=== PATIENT | female | born 1990 ===

== ENCOUNTER 2020-12-27 16:55 | Inpatient (IN) | payer BC ==
[2020-12-27] MEDS ORDERED: Lidocaine 1% 50 ML MDV INJECT PRN (18:01)
[2020-12-27] MEDS ORDERED: Carboprost Tromethamine 250 MCG/1 ML Amp IM PRN (18:01)
[2020-12-27] MEDS ORDERED: Sodium Chloride 0.9% 10 ML Syringe FLUSH PRN (18:01)
[2020-12-27] MEDS ORDERED: Sodium Chloride 0.9% 2.5 ML Syringe FLUSH PRN (18:01)
[2020-12-27] MEDS ORDERED: Misoprostol 200 MCG Tab PO PRN (18:01)
[2020-12-27] MEDS ORDERED: Misoprostol 25 MCG (1/4 of 100 MCG) Tab VAG PRN (18:01)
[2020-12-27] MEDS ORDERED: Sodium Chloride 0.9% 10 ML SDV IV PRN (18:01)
[2020-12-27] MEDS ORDERED: Terbutaline 1 MG/ML SDV SUBCUT PRN (18:01)
[2020-12-27] MEDS ORDERED: Methylergonovine 0.2 MG/1 ML Amp IM PRN (18:01)
[2020-12-27] MEDS ORDERED: Water For Irrigation,Sterile 1,000 ML Container IRR PRN (18:01)
[2020-12-27] MEDS ORDERED: Ondansetron 4 MG/2 ML SDV IVPUSH PRN (18:01)
[2020-12-27] MEDS ORDERED: Tranexamic Acid 1,000 MG in Sodium Chloride 0.9% 100 ML IV PRN (18:01)
[2020-12-27] MEDS ORDERED: Oxytocin/0.9 % Sodium Chloride 30 UNIT/500 ML BAG IV SCH ×2 (18:15)
[2020-12-27] MEDS: Misoprostol 25 MCG (1/4 of 100 MCG) Tab VAG PRN ×2 (18:42→23:00)
[2020-12-28] MEDS: Butorphanol 1 MG/ML SDV IVPUSH PRN ×2 (00:05→03:36)
[2020-12-28] MEDS: Misoprostol 25 MCG (1/4 of 100 MCG) Tab VAG PRN (03:00)
[2020-12-28] MEDS: Lactated Ringers 1,000 ML IV SCH ×2 (08:16→13:54)
[2020-12-28] MEDS ORDERED: fentaNYL 100 MCG/2 ML SDV ONE ×2 (08:52→20:16)
[2020-12-28] MEDS ORDERED: Ropivacaine HCl/PF 200 ML ONE (08:52)
--- NOTE | 2020-12-28 09:23 | PCM.PREANE ---
Preanesthetic Assessment - Anesthesia/Transfusion/Family Hx Anesthesia History: Prior Anesthesia Without Reaction Family History of Anesthesia Reaction: No - Physical Assessment NPO Status Date: 12/28/20 NPO Status Time: 06:00 Height: 1.57 m Weight: 92.079 kg ASA Class: 2 - Lab Values: Laboratory Last Values WBC 15.23 K/uL (4.0-11.0) H 12/27/20 18:14 RBC 4.28 M/uL (4.30-5.90) L 12/27/20 18:14 Hgb 11.9 g/dL (12.0-16.0) L 12/27/20 18:14 Hct 36.8 % (36.0-46.0) 12/27/20 18:14 MCV 86.0 fL (80.0-98.0) 12/27/20 18:14 MCH 27.8 pg (27.0-32.0) 12/27/20 18:14 MCHC 32.3 g/dL (31.0-37.0) 12/27/20 18:14 RDW Std Deviation 44.6 fl (28.0-62.0) 12/27/20 18:14 RDW Coeff of Kaleigh 15 % (11.0-15.0) 12/27/20 18:14 Plt Count 373 K/uL (150-400) 12/27/20 18:14 MPV 10.20 fL (7.40-12.00) 12/27/20 18:14 Nucleated RBC % 0.0 /100WBC 12/27/20 18:14 Nucleated RBCs # 0 K/uL 12/27/20 18:14 Blood Type A POSITIVE 12/27/20 18:16 Antibody Screen NEGATIVE 12/27/20 18:16 - Allergies Allergies/Adverse Reactions: Allergies Allergy/AdvReac Type Severity Reaction Status Date / Time No Known Allergies Allergy Verified 12/27/20 18:00 - Acknowledgements Anesthesia Type Planned: Epidural Pt an Appropriate Candidate for the Planned Anesthesia: Yes Alternatives and Risks of Anesthesia Discussed w Pt/Guardian: Yes Pt/Guardian Understands and Agrees with Anesthesia Plan: Yes PreAnesthesia Questionnaire Genitourinary History: Reports: UTI, Recurrent [employer] History: Reports: Ectopic , Polycystic Ovaries - Infectious Disease History Infectious Disease History: Reports: Herpes - Past Surgical History Female Surgical History: Reports: Dilitation & Evacuation, LEEP, Other (See Below) Other Female Surgeries/Procedures: Salpingo 2012 - SUBSTANCE USE Tobacco Use Status *Q: Never Tobacco User Second Hand Smoke Exposure: No Recreational Drug Use History: No - CURRENT (IN HOUSE) MEDS Current Meds: Current Medications Butorphanol Tartrate (Butorphanol 1 Mg/Ml Sdv) 1 mg IVPUSH Q1H PRN PRN Reason: Pain (severe 7-10) Last Admin: 12/28/20 03:36 Dose: 1 mg Documented by: Carboprost Tromethamine (Carboprost Tromethamine 250 Mcg/1 Ml Amp) 250 mcg IM ASDIRECTED PRN PRN Reason: Post Hemorrhage Oxytocin/Sodium Chloride (Oxytocin 30 Unit/500 Ml-Ns) 30 unit in 500 mls @ 999 mls/hr IV TITRATE [facility] Tranexamic Acid 1,000 mg/ (Sodium Chloride) 110 mls @ 660 mls/hr IV ONETIME PRN PRN Reason: Bleeding Oxytocin/Sodium Chloride (Oxytocin 30 Unit/500 Ml-Ns) 30 unit in 500 mls @ 2 mls/hr IV TITRATE [facility]; Protocol Last Admin: 12/28/20 08:17 Dose: 2 munits/min, 2 mls/hr Documented by: Lactated Ringer's (Ringers, Lactated) 1,000 mls @ 150 mls/hr IV ASDIRECTED [facility] Last Admin: 12/28/20 08:16 Dose: 150 mls/hr Documented by: Lidocaine HCl (Lidocaine 1% 50 Ml Mdv) 50 ml INJECT ONETIME PRN PRN Reason: Laceration repair Methylergonovine Maleate (Methylergonovine 0.2 Mg/1 Ml Amp) 0.2 mg IM ASDIRECTED PRN PRN Reason: Post Hemorrhage Misoprostol (Misoprostol 200 Mcg Tab) 200 mcg PO ONETIME PRN PRN Reason: Post Hemorrhage Misoprostol (Misoprostol 25 Mcg (1/4 Of 100 Mcg) Tab) 25 mcg VAG ONETIME PRN PRN Reason: Cervical Ripening Last Admin: 12/28/20 03:00 Dose: 25 mcg Documented by: Misoprostol (Misoprostol 25 Mcg (1/4 Of 100 Mcg) Tab) 25 mcg VAG Q4H PRN PRN Reason: Cervical Ripening Ondansetron HCl (Ondansetron 4 Mg/2 Ml Sdv) 4 mg IVPUSH Q6H PRN PRN Reason: Nausea/Vomiting Sodium Chloride (Sodium Chloride 0.9% 10 Ml Syringe) 10 ml FLUSH ASDIRECTED PRN PRN Reason: Keep Vein Open Sodium Chloride (Sodium Chloride 0.9% 2.5 Ml Syringe) 2.5 ml FLUSH ASDIRECTED PRN PRN Reason: Keep Vein Open Sodium Chloride (Sodium Chloride 0.9% 10 Ml Sdv) 10 ml IV ASDIRECTED PRN PRN Reason: IV Use Sterile Water (Water For Irrigation,Sterile 1,000 Ml Container) 1,000 ml IRR ASDIRECTED PRN PRN Reason: delivery Terbutaline Sulfate (Terbutaline 1 Mg/Ml Sdv) 0.25 mg SUBCUT ASDIRECTED PRN PRN Reason: Tacysystole Discontinued Medications Fentanyl (Fentanyl 100 Mcg/2 Ml Sdv) Confirm Administered Dose 200 mcg .ROUTE .STK-MED ONE Stop: 12/28/20 08:53 Ropivacaine (Naropin 0.2%) Confirm Administered Dose 200 mls @ as directed .ROUTE .STK-MED ONE Stop: 12/28/20 08:53
--- NOTE | 2020-12-28 09:27 | PCM.PRNOTE ---
- Free Text/Narrative Note: Anes Note Patient requests epidural for L&D. Sitting position. Level L3-L4 midline approach. Sterile technique. Chloraprep scrub to lumbar area. Sterile fenestrated drape applied. Epidural space easily achieved using TREY technique. TREY at 4 cm. Cath threaded 5 cm with ease. Cath secured a t skin using sterile clear adhesive dressing. Test 0910 3 cc 1.5% lido with epi negative. 0915 Load 10 cc 0.2% ropivicaine with 1 mcg cc fentanyl in slow divided doses. -922 Pump started with 180 cc same solution. Rate is 8 cc hr with 6 cc q 20 min prn bolus. Derrick well. Time with patient [id number] Juan Fuentes MARKETING DEVELOPER
[2020-12-28] MEDS ORDERED: Phenylephrine/Normal Saline 100 MCG/ML 10 ML Syringe IVPUSH PRN (09:32)
[2020-12-28] MEDS ORDERED: ePHEDrine 50 MG/ML SDV IVPUSH PRN (09:32)
--- NOTE | 2020-12-28 15:11 | PCM.PRNOTE ---
- Free Text/Narrative Note: Anes Note I was called to check the epidural pump, which was reporting air in line. The line was clear. The line was flushed and the pump was restarted. Rate is 8 cc hr with 6 cc q 20 min bolus. Patient reports excellent analgesia. Time with patient [id number] Juan Fuentes CRNA
[2020-12-28] MEDS ORDERED: Lidocaine 2% with EPINEPHrine 1:200,000 20 ML SDV ONE (19:56)
[2020-12-28] MEDS ORDERED: Sodium Chloride 0.9% 20 ML ONE (20:16)
[2020-12-28] MEDS ORDERED: Ketorolac 30 MG/ML SDV ONE (20:16)
[2020-12-28] MEDS ORDERED: Morphine PF 10 MG/10 ML SDV ONE (20:16)
[2020-12-28] MEDS ORDERED: ceFAZolin 1 GM Vial ONE (20:16)
[2020-12-28] MEDS ORDERED: Oxytocin 10 Units/1 ML SDV ONE (20:16)
[2020-12-28] MEDS ORDERED: Ondansetron 4 MG/2 ML SDV ONE (20:16)
[2020-12-28] MEDS ORDERED: Nalbuphine 10 MG/1 ML Vial IVPUSH PRN (20:45)
[2020-12-28] MEDS: Ketorolac 30 MG/ML SDV IVPUSH SCH (20:45)
[2020-12-28] MEDS ORDERED: Bisacodyl 10 MG Supp RECTAL PRN (21:03)
[2020-12-28] MEDS ORDERED: Oxytocin 10 Units/1 ML SDV IM PRN (21:03)
[2020-12-28] MEDS ORDERED: Lanolin 100% Cream 7 GM Tube TOP PRN (21:03)
[2020-12-28] MEDS ORDERED: Acetaminophen/oxyCODONE 325-5 MG Tab PO PRN (21:03)
[2020-12-28] MEDS ORDERED: Ondansetron 4 MG/2 ML SDV IVPUSH PRN (21:03)
[2020-12-28] MEDS ORDERED: diphenhydrAMINE 50 MG/ML SDV IVPUSH PRN (21:03)
--- NOTE | 2020-12-28 21:13 | PCM.OPNOTE ---
- General Post-Op/Procedure Note Date of Surgery/Procedure: 12/28/20 Operative Procedure(s): Primary LTCS Findings: Viable male APGARs 8, 9 weight 3580 gm. Delivery intact placenta with 3V cord Pre Op Diagnosis: 41/6 week IUP. Arrest of descent Post-Op Diagnosis: Same Anesthesia Technique: Epidural Primary Surgeon: Arline Domínguez Fluid Replacement, Intraop: 1,500 EBL in mLs: 600 Complications: none known Condition: Stable Free Text/Narrative:: Intake & Output 12/28/20 12/28/20 12/28/20 06:59 14:59 22:59 Output Total Balance @ Dictation [id number]
[2020-12-28] MEDS ORDERED: Lactated Ringers 1,000 ML IV SCH (21:15)
--- NOTE | 2020-12-28 21:22 | PCM.POSTAN ---
POST ANESTHESIA ASSESSMENT - MENTAL STATUS Mental Status: Alert - VITAL SIGNS Vital Signs: Last Vital Signs Temp 36.6 C 12/28/20 20:56 Pulse 88 12/28/20 20:56 Resp 14 12/28/20 20:56 BP 100/68 12/28/20 20:56 Pulse Ox 96 12/28/20 20:56 - RESPIRATORY Respiratory Status: Respiratory Rate WNL - CARDIOVASCULAR CV Status: Pulse Rate WNL - GASTROINTESTINAL GI Status: No Symptoms - POST OP HYDRATION Hydration Status: Adequate & Stable
[2020-12-29] MEDS: Ketorolac 30 MG/ML SDV IVPUSH SCH ×4 (03:05→21:39)
[2020-12-29] MEDS: Simethicone 80 MG Tab.Chew PO SCH ×3 (03:18→14:37)
--- NOTE | 2020-12-29 05:42 | OR ---
SURGEON: Arline Domínguez M.D. DATE OF PROCEDURE: 12/28/2020 PREOPERATIVE DIAGNOSES: 1. A 41-6/7 week intrauterine . 2. Arrest of descent. POSTOPERATIVE DIAGNOSES: 1. A 41-6/7 week intrauterine . 2. Arrest of descent. PROCEDURE: Primary low-transverse section. PRIMARY SURGEON: Arline Domínguez M.D. ANESTHESIA: Epidural. ESTIMATED BLOOD LOSS: 600 mL. FLUIDS: 1300 mL of crystalloid in the OR. COMPLICATIONS: None known. FINDINGS: Viable male. scores 8 at one minute and 9 at five minutes. Weight of 3580 g. Spontaneous delivery of intact placenta with 3-vessel cord. DISPOSITION: Infant to nursery, mom in PACU, stable. PROCEDURE DETAILS: Mitzi is a 30-year-old, G1, P0, at 41-6/7 week gestational age, who presented on the evening of 12/27/2020 for scheduled induction of labor due to past due . She initially underwent Cytotec ripening, responded nicely to this. The following morning, she was found to be 2 to 3 cm dilated, 80% effaced, -2 station. Amniotomy was performed. Clear fluid was returned. She became increasingly uncomfortable, underwent regional anesthesia in the form of epidural, became more comfortable, and made nice progress through the late morning and early afternoon hours. By 5 p.m., she was found to be complete, 100% effaced, 0 station. heart tones remained category 1. The patient began pushing efforts. She pushed for the next 2 hours with really no change in her station. I came in at that point and continued to push with her, and noted that there really was no descent of the suture line past the 0 station, just caput forming. Therefore, at this point had a discussion with the patient and her regarding the findings and options to either continue with pushing efforts for the next approximately an hour or to proceed with delivery. They are opting to proceed with a delivery at this juncture. Risks of procedure have been discussed with them including infection; bleeding; possible trauma to the surrounding bowel, bladder, or ureters; in case of excessive blood loss, need for blood product transfusion; in rare lifesaving circumstances need for hysterectomy; blood product transfusion; risk for thromboembolic event; and risk of anesthesia. Proper consent obtained. The patient was taken to the operating room after her epidural was re-bolused. She was placed in the dorsal supine position with a leftward tilt. SCDs to the lower extremities. Park to gravity. Prepped and draped in the usual sterile fashion. A time-out was performed. She received Ancef prophylactically. Anesthesia was tested and found to be adequate. A Pfannenstiel skin incision was now created and carried down to the level of the rectus fascia which was then incised in the midline, lateralized, and dissected sharply and bluntly. Superior aspect of the fascia was tented up, dissected sharply and bluntly from underlying muscle. A similar aspect was performed with the inferior aspect of fascia. Rectus muscle was in the midline. Peritoneum was tented upward and entered. The peritoneum and rectus muscles were now lateralized bluntly. Uterine position and position were gently palpated. Self-retaining retractor was gently placed. Uterovesical reflection was visualized. Bladder flap was created sharply and bluntly. The bladder was mobilized away from lower uterine segment. A low transverse hysterotomy was now performed. The uterine cavity was entered with blunt-ended scalpel. Hysterotomy was lateralized bluntly. The 's head was flexed, delivered from the pelvis. Fundal pressure was applied. The 's head was delivered followed by anterior shoulder, posterior shoulder, and remainder of the body without difficulty. A loose nuchal cord x1 was reduced manually. The 's oropharynx and nares were bulb suctioned. After a delay, the cord was clamped x2 and cut. The was handed off to attending systems support engineer and nursery staff. The placenta was delivered and handed off to [facility] with 3-vessel cord. She did obtain cord blood gases and blood sampling. The uterine cavity was cleared of all clot and debris. The uterus was firm at this time. Hysterotomy was repaired using 0 Vicryl in a continuous running locked fashion followed by a re-imbricating layer. The area of oozing in the midline was replicated with a [id number] suture. Hemostasis was thereafter evident. Posterior aspect of the uterus was inspected. No defects or hematomas were found be forming. Region was well irrigated and suction dried. The uterus was returned to the abdominal cavity. The colonic gutters were cleared of all clot, debris, well irrigated, suction dried. Any areas of serosal oozing were now cauterized. Hemostasis was evident. Self-retaining retractor was now gently removed. Bladder blade was placed. Hysterotomy once again inspected and found to be hemostatic. The bladder blade was removed. Rectus muscle and peritoneum were now reapproximated using 0 Vicryl, and the skin with inverted mattress suture technique. Anterior aspect of the muscle and posterior aspect of the fascia were closely inspected. Any areas of oozing were cauterized. The rectus fascia was reapproximated using 0 Vicryl in continuous running fashion beginning laterally on either side and meeting in the midline. Subcutaneous tissue was well irrigated and suction dried. Any areas of oozing were cauterized. The skin edges were reapproximated using 3-0 Vicryl on a Rich needle in a subcuticular fashion, followed by half-inch Steri-Strips and Mastisol. Sponge, instrument, and needle counts were correct x2. The uterus remained firm. Hemostasis was evident. The patient will go to the PACU in stable condition, and the infant to nursery. JANET / DANIEL /[id number]
--- NOTE | 2020-12-29 07:33 | PCM48HPAN ---
Post Anesthesia Note - EVALUATION WITHIN 48HRS OF ANESTHETIC Vital Signs in Normal Range: Yes Patient Participated in Evaluation: Yes Respiratory Function Stable: Yes Airway Patent: Yes Cardiovascular Function Stable: Yes Hydration Status Stable: Yes Pain Control Satisfactory: Yes Nausea and Vomiting Control Satisfactory: Yes Mental Status Recovered: Yes Vital Signs: Last Vital Signs Temp 36.4 C 12/29/20 06:00 Pulse 102 H 12/29/20 06:00 Resp 16 12/29/20 06:00 BP 122/73 12/29/20 06:00 Pulse Ox 96 12/29/20 06:00
--- NOTE | 2020-12-29 09:05 | PCM.PNPP ---
- General Info Date of Service: 12/29/20 Functional Status: Reports: Pain Controlled, Tolerating Diet, Ambulating, Urinating - Review of Systems General: Reports: Fatigue. Denies: Fever, Weakness Pulmonary: Denies: Shortness of Breath Cardiovascular: Denies: Chest Pain, Palpitations, Lightheadedness Gastrointestinal: Reports: Abdominal Pain (mild incisional), Nausea (had emesis last night, receiving zofran this am) Genitourinary: Reports: No Symptoms Musculoskeletal: Reports: No Symptoms Skin: Reports: No Symptoms Neurological: Reports: No Symptoms Psychiatric: Reports: No Symptoms - Patient Data Vital Signs - Most Recent: Last Vital Signs Temp 36.8 C 12/29/20 08:00 Pulse 97 12/29/20 08:00 Resp 17 12/29/20 08:00 BP 115/74 12/29/20 08:00 Pulse Ox 98 12/29/20 08:00 Weight - Most Recent: 92.079 kg I&O - Last 24 Hours: Intake & Output 12/28/20 12/29/20 12/29/20 22:59 06:59 14:59 Intake Total 3100 Output Total 100 30 Balance 3000 -29* Lab Results - Last 24 Hours: Laboratory Results - last 24 hr 12/28/20 12/29/20 Range/Units 20:19 05:07 Hgb 8.6 L (12.0-16.0) g/dL Hct 26.8 L (36.0-46.0) % Cord ABG pH 7.233 (7.18-7.38) Cord ABG Base Excess -8 (-10--2) Med Orders - Current: Current Medications Bisacodyl (Bisacodyl 10 Mg Supp) 10 mg RECTAL ONETIME PRN PRN Reason: Constipation Carboprost Tromethamine (Carboprost Tromethamine 250 Mcg/1 Ml Amp) 250 mcg IM ASDIRECTED PRN PRN Reason: Post Hemorrhage Diphenhydramine HCl (Diphenhydramine 50 Mg/Ml Sdv) 25 mg IVPUSH Q6H PRN PRN Reason: Itching or Nausea Docusate Sodium (Docusate Sodium 100 Mg Cap) 100 mg PO BID [facility] Emollient Ointment (Lanolin 100% Cream 7 Gm Tube) 0 gm TOP ASDIRECTED PRN PRN Reason: Sore Nipples Ephedrine Sulfate (Ephedrine 50 Mg/Ml Sdv) 10 mg IVPUSH Q5M PRN PRN Reason: Hypotension Oxytocin/Sodium Chloride (Oxytocin 30 Unit/500 Ml-Ns) 30 unit in 500 mls @ 999 mls/hr IV TITRATE [facility] Tranexamic Acid 1,000 mg/ (Sodium Chloride) 110 mls @ 660 mls/hr IV ONETIME PRN PRN Reason: Bleeding Lactated Ringer's (Ringers, Lactated) 1,000 mls @ 150 mls/hr IV ASDIRECTED [facility] Last Admin: 12/28/20 13:54 Dose: 150 mls/hr Documented by: Lactated Ringer's (Ringers, Lactated) 1,000 mls @ [facility] Last Admin: 12/29/20 06:05 Dose: 125 mls/hr Documented by: Ibuprofen (Ibuprofen 800 Mg Tab) 800 mg PO Q8H PRN PRN Reason: mild pain or fever Ketorolac Tromethamine (Ketorolac 30 Mg/Ml Sdv) 30 mg IVPUSH Q6H [facility] Stop: 12/29/20 20:01 Last Admin: 12/29/20 08:42 Dose: 30 mg Documented by: Nalbuphine HCl (Nalbuphine 10 Mg/1 Ml Vial) 5 mg IVPUSH Q3H PRN PRN Reason: Pruritis Stop: 12/29/20 20:45 Ondansetron HCl (Ondansetron 4 Mg/2 Ml Sdv) 4 mg IVPUSH Q6H PRN PRN Reason: Nausea/Vomiting Ondansetron HCl (Ondansetron 4 Mg/2 Ml Sdv) 4 mg IVPUSH Q4H PRN PRN Reason: Nausea/Vomiting Last Admin: 12/29/20 08:49 Dose: 4 mg Documented by: Oxycodone/Acetaminophen (Acetaminophen/Oxycodone 325-5 Mg Tab) 1 tab PO Q4H PRN PRN Reason: Pain (severe 7-10) Oxycodone/Acetaminophen (Acetaminophen/Oxycodone 325-5 Mg Tab) 2 tab PO Q4H PRN PRN Reason: Pain (severe 7-10) Oxytocin (Oxytocin 10 Units/1 Ml Sdv) 10 unit IM ASDIRECTED PRN PRN Reason: Excessive Vaginal Bleeding Phenylephrine HCl (Phenylephrine/Normal Saline 100 Mcg/Ml 10 Ml Syringe) 0.1 mg IVPUSH Q5M PRN PRN Reason: Hypotension Simethicone (Simethicone 80 Mg Tab.Chew) 160 mg PO QID [facility] Last Admin: 12/29/20 03:18 Dose: 160 mg Documented by: Sodium Chloride (Sodium Chloride 0.9% 10 Ml Syringe) 10 ml FLUSH ASDIRECTED PRN PRN Reason: Keep Vein Open Sodium Chloride (Sodium Chloride 0.9% 2.5 Ml Syringe) 2.5 ml FLUSH ASDIRECTED PRN PRN Reason: Keep Vein Open Sodium Chloride (Sodium Chloride 0.9% 10 Ml Sdv) 10 ml IV ASDIRECTED PRN PRN Reason: IV Use Terbutaline Sulfate (Terbutaline 1 Mg/Ml Sdv) 0.25 mg SUBCUT ASDIRECTED PRN PRN Reason: Tacysystole Discontinued Medications Butorphanol Tartrate (Butorphanol 1 Mg/Ml Sdv) 1 mg IVPUSH Q1H PRN PRN Reason: Pain (severe 7-10) Last Admin: 12/28/20 03:36 Dose: 1 mg Documented by: Cefazolin Sodium (Cefazolin 1 Gm Vial) Confirm Administered Dose 2 gm .ROUTE .STK-MED ONE Stop: 12/28/20 20:17 Fentanyl (Fentanyl 100 Mcg/2 Ml Sdv) Confirm Administered Dose 200 mcg .ROUTE .STK-MED ONE Stop: 12/28/20 08:53 Last Admin: 12/29/20 05:01 Dose: Not Given Documented by: Fentanyl (Fentanyl 100 Mcg/2 Ml Sdv) Confirm Administered Dose 100 mcg .ROUTE .STK-MED ONE Stop: 12/28/20 20:17 Oxytocin/Sodium Chloride (Oxytocin 30 Unit/500 Ml-Ns) 30 unit in 500 mls @ 2 mls/hr IV TITRATE [facility]; Protocol Last Titration: 12/28/20 13:56 Dose: 14 munits/min, 14 mls/hr Documented by: Ropivacaine (Naropin 0.2%) Confirm Administered Dose 200 mls @ as directed .ROUTE .STK-MED ONE Stop: 12/28/20 08:53 Last Admin: 12/29/20 05:01 Dose: Not Given Documented by: Sodium Chloride (Normal Saline) Confirm Administered Dose 20 mls @ as directed .ROUTE .STK-MED ONE Stop: 12/28/20 20:17 Ketorolac Tromethamine (Ketorolac 30 Mg/Ml Sdv) Confirm Administered Dose 30 mg .ROUTE .STK-MED ONE Stop: 12/28/20 20:17 Lidocaine HCl (Lidocaine 1% 50 Ml Mdv) 50 ml INJECT ONETIME PRN PRN Reason: Laceration repair Lidocaine/Epinephrine (Lidocaine 2% With Epinephrine 1:200,000 20 Ml Sdv) Confirm Administered Dose 20 ml .ROUTE .STK-MED ONE Stop: 12/28/20 19:57 Last Admin: 12/29/20 05:01 Dose: Not Given Documented by: Methylergonovine Maleate (Methylergonovine 0.2 Mg/1 Ml Amp) 0.2 mg IM ASDIRECTED PRN PRN Reason: Post Hemorrhage Misoprostol (Misoprostol 200 Mcg Tab) 200 mcg PO ONETIME PRN PRN Reason: Post Hemorrhage Misoprostol (Misoprostol 25 Mcg (1/4 Of 100 Mcg) Tab) 25 mcg VAG ONETIME PRN PRN Reason: Cervical Ripening Last Admin: 12/28/20 03:00 Dose: 25 mcg Documented by: Misoprostol (Misoprostol 25 Mcg (1/4 Of 100 Mcg) Tab) 25 mcg VAG Q4H PRN PRN Reason: Cervical Ripening Morphine Sulfate (Morphine Pf 10 Mg/10 Ml Sdv) Confirm Administered Dose 10 mg .ROUTE .STK-MED ONE Stop: 12/28/20 20:17 Ondansetron HCl (Ondansetron 4 Mg/2 Ml Sdv) Confirm Administered Dose 4 mg .ROUTE .STK-MED ONE Stop: 12/28/20 20:17 Oxytocin (Oxytocin 10 Units/1 Ml Sdv) Confirm Administered Dose 20 unit .ROUTE .STK-MED ONE Stop: 12/28/20 20:17 Sterile Water (Water For Irrigation,Sterile 1,000 Ml Container) 1,000 ml IRR ASDIRECTED PRN PRN Reason: delivery - Interaction Support Person: - Recovery Exam Fundal Tone: Firm Fundal Level: At Umbilicus Fundal Placement: Midline Lochia Amount: Scant Lochia Color: Rubra/Red Perineum Description: Intact, Minimal Bruising/Swelling Episiotomy/Laceration: None Bladder Status: Indwelling Catheter in Place Urinary Elimination: Indwelling Catheter - Exam General: Alert, Oriented Lungs: Normal Respiratory Effort Cardiovascular: Regular Rate, Regular Rhythm GI/Abdominal Exam: Normal Bowel Sounds, Soft Extremities: Pedal Edema (1+). No: Mya's Sign Skin: Warm, Dry, Intact Wound/Incisions: Dressing Dry and Intact Neurological: No New Focal Deficit Psy/Mental Status: Alert, Normal Affect, Normal Mood - Problem List & Annotations (1) Arrest of descent, delivered, current hospitalization SNOMED Code(s): 44954308, 073848431 Code(s): O62.1 - SECONDARY UTERINE INERTIA Status: Acute Current Visit: Yes - Problem List Review Problem List Initiated/Reviewed/Updated: Yes - My Orders Last 24 Hours: My Active Orders 12/28/20 Dinner Regular Diet [DIET] 12/28/20 20:00 Ketorolac [Toradol] 30 mg IVPUSH Q6H 12/28/20 21:03 Patient Status [ADT] Routine Ambulate [RC] PER UNIT ROUTINE Antiembolic Devices [RC] PER UNIT ROUTINE Communication Order [RC] PER UNIT ROUTINE Communication Order [RC] PER UNIT ROUTINE Communication Order [RC] Per Unit Routine Cooling Warming Measures [RC] ASDIRECTED May Shower [RC] ASDIRECTED Notify Provider Intake and Out [RC] ASDIRECTED Notify Provider Vital Signs [RC] ASDIRECTED RT Incentive Spirometry [RC] Q2HWA Vital Signs [RC] PER UNIT ROUTINE Acetaminophen/oxyCODONE [Percocet 325-5 MG] 1 tab PO Q4H PRN Acetaminophen/oxyCODONE [Percocet 325-5 MG] 2 tab PO Q4H PRN Ibuprofen [Motrin] 800 mg PO Q8H PRN Lanolin [Lansinoh HPA] See Dose Instructions TOP ASDIRECTED PRN Ondansetron [Zofran] 4 mg IVPUSH Q4H PRN Oxytocin [Pitocin] 10 unit IM ASDIRECTED PRN bisacodyL [Dulcolax] 10 mg RECTAL ONETIME PRN diphenhydrAMINE [Benadryl] 25 mg IVPUSH Q6H PRN Abdominal Binder [OM.PC] Routine Assess Lochia [WOMSER] Per Unit Routine Assess Uterine Involution [WOMSER] Per Unit Routine Breast Pump [WOMSER] Per Unit Routine Heat Therapy [OM.PC] Routine Ice Therapy [OM.PC] Routine Peripheral IV Discontinue [OM.PC] Routine Sequential Compression Device [OM.PC] Per Unit Routine 12/28/20 21:15 Lactated Ringers [Ringers, Lactated] 1,000 ml IV ASDIRECTED 12/29/20 00:00 Simethicone 160 mg PO QID 12/29/20 09:00 Docusate Sodium [Colace] 100 mg PO BID - Assessment Assessment:: POD 1 status post primary LTCS Anemia - Plan Plan:: VS are stable, anemic--will monitor symptoms once becomes ambulatory. Continue postoperative cares, ambulate today. Remove christine catheter. Checked patient out to information technology coordinator physician, Dr Duque. Rx for percocet [facility].
[2020-12-29] MEDS: Docusate Sodium 100 MG Cap PO SCH ×2 (15:26→21:38)
[2020-12-30] MEDS: Acetaminophen/oxyCODONE 325-5 MG Tab PO PRN ×3 (05:50→23:17)
[2020-12-30] MEDS: Ibuprofen 800 MG Tab PO PRN ×3 (05:51→23:17)
[2020-12-30] MEDS: Simethicone 80 MG Tab.Chew PO SCH ×4 (06:19→23:30)
--- NOTE | 2020-12-30 08:09 | PCM.PNPP ---
- General Info Date of Service: 12/30/20 Subjective Update: Resting comfortably in bed, during rounds. Pain well controlled. Ambulating and voiding without difficulty. Lochia decreasing. Tolerating regular diet. and supplementing for baby. Denies lightheadedness, dizziness or headache. - General Info Date of Service: 12/30/20 - Patient Data Vital Signs - Most Recent: Last Vital Signs Temp 97.6 F 12/30/20 05:30 Pulse 95 12/30/20 05:30 Resp 16 12/30/20 05:30 BP 121/56 L 12/30/20 05:30 Pulse Ox 97 12/30/20 05:30 Weight - Most Recent: 203 lb I&O - Last 24 Hours: Intake & Output 12/29/20 12/30/20 12/30/20 22:59 06:59 14:59 Intake Total 990 Output Total Balance 1006 Lab Results - Last 24 Hours: Laboratory Results - last 24 hr 12/27/20 Range/Units 18:14 RPR Non-Reac (Non-Reac) Med Orders - Current: Current Medications Bisacodyl (Bisacodyl 10 Mg Supp) 10 mg RECTAL ONETIME PRN PRN Reason: Constipation Carboprost Tromethamine (Carboprost Tromethamine 250 Mcg/1 Ml Amp) 250 mcg IM ASDIRECTED PRN PRN Reason: Post Hemorrhage Diphenhydramine HCl (Diphenhydramine 50 Mg/Ml Sdv) 25 mg IVPUSH Q6H PRN PRN Reason: Itching or Nausea Docusate Sodium (Docusate Sodium 100 Mg Cap) 100 mg PO BID [facility] Last Admin: 12/29/20 21:38 Dose: 100 mg Documented by: Emollient Ointment (Lanolin 100% Cream 7 Gm Tube) 0 gm TOP ASDIRECTED PRN PRN Reason: Sore Nipples Ephedrine Sulfate (Ephedrine 50 Mg/Ml Sdv) 10 mg IVPUSH Q5M PRN PRN Reason: Hypotension Oxytocin/Sodium Chloride (Oxytocin 30 Unit/500 Ml-Ns) 30 unit in 500 mls @ 999 mls/hr IV TITRATE [facility] Tranexamic Acid 1,000 mg/ (Sodium Chloride) 110 mls @ 660 mls/hr IV ONETIME PRN PRN Reason: Bleeding Lactated Ringer's (Ringers, Lactated) 1,000 mls @ 150 mls/hr IV ASDIRECTED [facility] Last Admin: 12/28/20 13:54 Dose: 150 mls/hr Documented by: Lactated Ringer's (Ringers, Lactated) 1,000 mls @ 125 mls/hr IV ASDIRECTED [facility] Last Admin: 12/29/20 06:05 Dose: 125 mls/hr Documented by: Ibuprofen (Ibuprofen 800 Mg Tab) 800 mg PO Q8H PRN PRN Reason: mild pain or fever Last Admin: 12/30/20 05:51 Dose: 800 mg Documented by: Ondansetron HCl (Ondansetron 4 Mg/2 Ml Sdv) 4 mg IVPUSH Q6H PRN PRN Reason: Nausea/Vomiting Ondansetron HCl (Ondansetron 4 Mg/2 Ml Sdv) 4 mg IVPUSH Q4H PRN PRN Reason: Nausea/Vomiting Last Admin: 12/29/20 08:49 Dose: 4 mg Documented by: Oxycodone/Acetaminophen (Acetaminophen/Oxycodone 325-5 Mg Tab) 1 tab PO Q4H PRN PRN Reason: Pain (severe 7-10) Last Admin: 12/30/20 05:50 Dose: 1 tab Documented by: Oxycodone/Acetaminophen (Acetaminophen/Oxycodone 325-5 Mg Tab) 2 tab PO Q4H PRN PRN Reason: Pain (severe 7-10) Oxytocin (Oxytocin 10 Units/1 Ml Sdv) 10 unit IM ASDIRECTED PRN PRN Reason: Excessive Vaginal Bleeding Phenylephrine HCl (Phenylephrine/Normal Saline 100 Mcg/Ml 10 Ml Syringe) 0.1 mg IVPUSH Q5M PRN PRN Reason: Hypotension Simethicone (Simethicone 80 Mg Tab.Chew) 160 mg PO QID [facility] Last Admin: 12/30/20 06:19 Dose: Not Given Documented by: Sodium Chloride (Sodium Chloride 0.9% 10 Ml Syringe) 10 ml FLUSH ASDIRECTED PRN PRN Reason: Keep Vein Open Sodium Chloride (Sodium Chloride 0.9% 2.5 Ml Syringe) 2.5 ml FLUSH ASDIRECTED PRN PRN Reason: Keep Vein Open Sodium Chloride (Sodium Chloride 0.9% 10 Ml Sdv) 10 ml IV ASDIRECTED PRN PRN Reason: IV Use Terbutaline Sulfate (Terbutaline 1 Mg/Ml Sdv) 0.25 mg SUBCUT ASDIRECTED PRN PRN Reason: Tacysystole Discontinued Medications Butorphanol Tartrate (Butorphanol 1 Mg/Ml Sdv) 1 mg IVPUSH Q1H PRN PRN Reason: Pain (severe 7-10) Last Admin: 12/28/20 03:36 Dose: 1 mg Documented by: Cefazolin Sodium (Cefazolin 1 Gm Vial) Confirm Administered Dose 2 gm .ROUTE .ST[facility]-MED ONE Stop: 12/28/20 20:17 Fentanyl (Fentanyl 100 Mcg/2 Ml Sdv) Confirm Administered Dose 200 mcg .ROUTE .STK-MED ONE Stop: 12/28/20 08:53 Last Admin: 12/29/20 05:01 Dose: Not Given Documented by: Fentanyl (Fentanyl 100 Mcg/2 Ml Sdv) Confirm Administered Dose 100 mcg .ROUTE .STK-MED ONE Stop: 12/28/20 20:17 Oxytocin/Sodium Chloride (Oxytocin 30 Unit/500 Ml-Ns) 30 unit in 500 mls @ 2 mls/hr IV TITRATE [facility]; Protocol Last Titration: 12/28/20 13:56 Dose: 14 munits/min, 14 mls/hr Documented by: Ropivacaine (Naropin 0.2%) Confirm Administered Dose 200 mls @ as directed .ROUTE .ST[facility]-MED ONE Stop: 12/28/20 08:53 Last Admin: 12/29/20 05:01 Dose: Not Given Documented by: Sodium Chloride (Normal Saline) Confirm Administered Dose 20 mls @ as directed .ROUTE .ST[facility]-MED ONE Stop: 12/28/20 20:17 Ketorolac Tromethamine (Ketorolac 30 Mg/Ml Sdv) Confirm Administered Dose 30 mg .ROUTE .STK-MED ONE Stop: 12/28/20 20:17 Ketorolac Tromethamine (Ketorolac 30 Mg/Ml Sdv) 30 mg IVPUSH Q6H [facility] Stop: 12/29/20 20:01 Last Admin: 12/29/20 21:39 Dose: 30 mg Documented by: Lidocaine HCl (Lidocaine 1% 50 Ml Mdv) 50 ml INJECT ONETIME PRN PRN Reason: Laceration repair Lidocaine/Epinephrine (Lidocaine 2% With Epinephrine 1:200,000 20 Ml Sdv) Confirm Administered Dose 20 ml .ROUTE .STK-MED ONE Stop: 12/28/20 19:57 Last Admin: 12/29/20 05:01 Dose: Not Given Documented by: Methylergonovine Maleate (Methylergonovine 0.2 Mg/1 Ml Amp) 0.2 mg IM ASDIRECTED PRN PRN Reason: Post Hemorrhage Misoprostol (Misoprostol 200 Mcg Tab) 200 mcg PO ONETIME PRN PRN Reason: Post Hemorrhage Misoprostol (Misoprostol 25 Mcg (1/4 Of 100 Mcg) Tab) 25 mcg VAG ONETIME PRN PRN Reason: Cervical Ripening Last Admin: 12/28/20 03:00 Dose: 25 mcg Documented by: Misoprostol (Misoprostol 25 Mcg (1/4 Of 100 Mcg) Tab) 25 mcg VAG Q4H PRN PRN Reason: Cervical Ripening Morphine Sulfate (Morphine Pf 10 Mg/10 Ml Sdv) Confirm Administered Dose 10 mg .ROUTE .STK-MED ONE Stop: 12/28/20 20:17 Nalbuphine HCl (Nalbuphine 10 Mg/1 Ml Vial) 5 mg IVPUSH Q3H PRN PRN Reason: Pruritis Stop: 12/29/20 20:45 Ondansetron HCl (Ondansetron 4 Mg/2 Ml Sdv) Confirm Administered Dose 4 mg .ROUTE .STK-MED ONE Stop: 12/28/20 20:17 Oxytocin (Oxytocin 10 Units/1 Ml Sdv) Confirm Administered Dose 20 unit .ROUTE .STK-MED ONE Stop: 12/28/20 20:17 Sterile Water (Water For Irrigation,Sterile 1,000 Ml Container) 1,000 ml IRR ASDIRECTED PRN PRN Reason: delivery - Interaction Infant Disposition, : [place] at Bedside Feeding: Attempted ; Nursed Fair/Poor (supplementing with formula this morning) Support Person: - Recovery Exam Fundal Tone: Firm Fundal Level: At Umbilicus Fundal Placement: Midline Lochia Amount: Scant Lochia Color: Rubra/Red Perineum Description: Intact, Minimal Bruising/Swelling Episiotomy/Laceration: None Bladder Status: Voiding Urinary Elimination: Voided - Exam General: Alert Lungs: Normal Respiratory Effort Cardiovascular: Regular Rate GI/Abdominal Exam: Soft, Non-Tender Extremities: Normal Inspection, Normal Range of Motion, Non-Tender, Pedal Edema (trace) Skin: Warm, Dry, Intact Wound/Incisions: Healing Well Neurological: No New Focal Deficit Psy/Mental Status: Normal Mood - Problem List Review Problem List Initiated/Reviewed/Updated: Yes - Assessment Assessment:: POD 2 status post primary LTCS Anemia - Plan Plan:: VS are stable, anemic--denies symptoms. Continue postoperative cares, ambulate today. Anticipate discharge tomorrow pending maternal/ status.
[2020-12-30] MEDS: Docusate Sodium 100 MG Cap PO SCH ×2 (10:44→23:17)
[2020-12-31] MEDS: Acetaminophen/oxyCODONE 325-5 MG Tab PO PRN ×3 (03:31→13:06)
[2020-12-31] MEDS: Simethicone 80 MG Tab.Chew PO SCH ×3 (06:06→13:05)
[2020-12-31] MEDS: Ibuprofen 800 MG Tab PO PRN (07:44)
--- NOTE | 2020-12-31 08:50 | PCM.PNPP ---
- General Info Date of Service: 12/31/20 Admission Dx/Problem (Free Text): Subjective Update: Walking about room during rounds. Pain well controlled. Ambulating and voiding without difficulty. Lochia decreasing. Tolerating regular diet. and supplementing for baby. Denies lightheadedness, dizziness or headache. - General Info Date of Service: 12/31/20 - Patient Data Vital Signs - Most Recent: Last Vital Signs Temp 97.3 F 12/31/20 03:30 Pulse 82 12/31/20 03:30 Resp 15 12/31/20 03:30 BP 119/61 12/31/20 03:30 Pulse Ox 96 12/31/20 03:30 Weight - Most Recent: 203 lb Med Orders - Current: Current Medications Bisacodyl (Bisacodyl 10 Mg Supp) 10 mg RECTAL ONETIME PRN PRN Reason: Constipation Carboprost Tromethamine (Carboprost Tromethamine 250 Mcg/1 Ml Amp) 250 mcg IM ASDIRECTED PRN PRN Reason: Post Hemorrhage Diphenhydramine HCl (Diphenhydramine 50 Mg/Ml Sdv) 25 mg IVPUSH Q6H PRN PRN Reason: Itching or Nausea Docusate Sodium (Docusate Sodium 100 Mg Cap) 100 mg PO BID [facility] Last Admin: 12/30/20 23:17 Dose: 100 mg Documented by: Emollient Ointment (Lanolin 100% Cream 7 Gm Tube) 0 gm TOP ASDIRECTED PRN PRN Reason: Sore Nipples Ephedrine Sulfate (Ephedrine 50 Mg/Ml Sdv) 10 mg IVPUSH Q5M PRN PRN Reason: Hypotension Oxytocin/Sodium Chloride (Oxytocin 30 Unit/500 Ml-Ns) 30 unit in 500 mls @ 999 mls/hr IV TITRATE [facility] Tranexamic Acid 1,000 mg/ (Sodium Chloride) 110 mls @ 660 mls/hr IV ONETIME PRN PRN Reason: Bleeding Lactated Ringer's (Ringers, Lactated) 1,000 mls @ 150 mls/hr IV ASDIRECTED [facility] Last Admin: 12/28/20 13:54 Dose: 150 mls/hr Documented by: Lactated Ringer's (Ringers, Lactated) 1,000 mls @ 125 mls/hr IV ASDIRECTED [facility] Last Admin: 12/29/20 06:05 Dose: 125 mls/hr Documented by: Ibuprofen (Ibuprofen 800 Mg Tab) 800 mg PO Q8H PRN PRN Reason: mild pain or fever Last Admin: 12/31/20 07:44 Dose: 800 mg Documented by: Ondansetron HCl (Ondansetron 4 Mg/2 Ml Sdv) 4 mg IVPUSH Q6H PRN PRN Reason: Nausea/Vomiting Ondansetron HCl (Ondansetron 4 Mg/2 Ml Sdv) 4 mg IVPUSH Q4H PRN PRN Reason: Nausea/Vomiting Last Admin: 12/29/20 08:49 Dose: 4 mg Documented by: Oxycodone/Acetaminophen (Acetaminophen/Oxycodone 325-5 Mg Tab) 1 tab PO Q4H PRN PRN Reason: Pain (severe 7-10) Last Admin: 12/31/20 07:45 Dose: 1 tab Documented by: Oxycodone/Acetaminophen (Acetaminophen/Oxycodone 325-5 Mg Tab) 2 tab PO Q4H PRN PRN Reason: Pain (severe 7-10) Oxytocin (Oxytocin 10 Units/1 Ml Sdv) 10 unit IM ASDIRECTED PRN PRN Reason: Excessive Vaginal Bleeding Phenylephrine HCl (Phenylephrine/Normal Saline 100 Mcg/Ml 10 Ml Syringe) 0.1 mg IVPUSH Q5M PRN PRN Reason: Hypotension Simethicone (Simethicone 80 Mg Tab.Chew) 160 mg PO QID [facility] Last Admin: 12/31/20 06:14 Dose: Not Given Documented by: Sodium Chloride (Sodium Chloride 0.9% 10 Ml Syringe) 10 ml FLUSH ASDIRECTED PRN PRN Reason: Keep Vein Open Sodium Chloride (Sodium Chloride 0.9% 2.5 Ml Syringe) 2.5 ml FLUSH ASDIRECTED PRN PRN Reason: Keep Vein Open Sodium Chloride (Sodium Chloride 0.9% 10 Ml Sdv) 10 ml IV ASDIRECTED PRN PRN Reason: IV Use Terbutaline Sulfate (Terbutaline 1 Mg/Ml Sdv) 0.25 mg SUBCUT ASDIRECTED PRN PRN Reason: Tacysystole Discontinued Medications Butorphanol Tartrate (Butorphanol 1 Mg/Ml Sdv) 1 mg IVPUSH Q1H PRN PRN Reason: Pain (severe 7-10) Last Admin: 12/28/20 03:36 Dose: 1 mg Documented by: Cefazolin Sodium (Cefazolin 1 Gm Vial) Confirm Administered Dose 2 gm .ROUTE .[facility]-MED ONE Stop: 12/28/20 20:17 Fentanyl (Fentanyl 100 Mcg/2 Ml Sdv) Confirm Administered Dose 200 mcg .ROUTE .STK-MED ONE Stop: 12/28/20 08:53 Last Admin: 12/29/20 05:01 Dose: Not Given Documented by: Fentanyl (Fentanyl 100 Mcg/2 Ml Sdv) Confirm Administered Dose 100 mcg .ROUTE .[facility]-MED ONE Stop: 12/28/20 20:17 Oxytocin/Sodium Chloride (Oxytocin 30 Unit/500 Ml-Ns) 30 unit in 500 mls @ 2 mls/hr IV TITRATE [facility]; Protocol Last Titration: 12/28/20 13:56 Dose: 14 munits/min, 14 mls/hr Documented by: Ropivacaine (Naropin 0.2%) Confirm Administered Dose 200 mls @ as directed .ROUTE .[facility] ONE Stop: 12/28/20 08:53 Last Admin: 12/29/20 05:01 Dose: Not Given Documented by: Sodium Chloride (Normal Saline) Confirm Administered Dose 20 mls @ as directed .ROUTE .[facility]-MED ONE Stop: 12/28/20 20:17 Ketorolac Tromethamine (Ketorolac 30 Mg/Ml Sdv) Confirm Administered Dose 30 mg .ROUTE .ST-MED ONE Stop: 12/28/20 20:17 Ketorolac Tromethamine (Ketorolac 30 Mg/Ml Sdv) 30 mg IVPUSH Q6H [facility] Stop: 12/29/20 20:01 Last Admin: 12/29/20 21:39 Dose: 30 mg Documented by: Lidocaine HCl (Lidocaine 1% 50 Ml Mdv) 50 ml INJECT ONETIME PRN PRN Reason: Laceration repair Lidocaine/Epinephrine (Lidocaine 2% With Epinephrine 1:200,000 20 Ml Sdv) Confirm Administered Dose 20 ml .ROUTE .ST-MED ONE Stop: 12/28/20 19:57 Last Admin: 12/29/20 05:01 Dose: Not Given Documented by: Methylergonovine Maleate (Methylergonovine 0.2 Mg/1 Ml Amp) 0.2 mg IM ASDIRECTED PRN PRN Reason: Post Hemorrhage Misoprostol (Misoprostol 200 Mcg Tab) 200 mcg PO ONETIME PRN PRN Reason: Post Hemorrhage Misoprostol (Misoprostol 25 Mcg (1/4 Of 100 Mcg) Tab) 25 mcg VAG ONETIME PRN PRN Reason: Cervical Ripening Last Admin: 12/28/20 03:00 Dose: 25 mcg Documented by: Misoprostol (Misoprostol 25 Mcg (1/4 Of 100 Mcg) Tab) 25 mcg VAG Q4H PRN PRN Reason: Cervical Ripening Morphine Sulfate (Morphine Pf 10 Mg/10 Ml Sdv) Confirm Administered Dose 10 mg .ROUTE .STK-MED ONE Stop: 12/28/20 20:17 Nalbuphine HCl (Nalbuphine 10 Mg/1 Ml Vial) 5 mg IVPUSH Q3H PRN PRN Reason: Pruritis Stop: 12/29/20 20:45 Ondansetron HCl (Ondansetron 4 Mg/2 Ml Sdv) Confirm Administered Dose 4 mg .ROUTE .STK-MED ONE Stop: 12/28/20 20:17 Oxytocin (Oxytocin 10 Units/1 Ml Sdv) Confirm Administered Dose 20 unit .ROUTE .STK-MED ONE Stop: 12/28/20 20:17 Sterile Water (Water For Irrigation,Sterile 1,000 Ml Container) 1,000 ml IRR ASDIRECTED PRN PRN Reason: delivery - Interaction Disposition, : [place] at Bedside Infant Feeding: Attempted ; Nursed Fair/Poor (supplementing with f ormula this morning), Other (see below) (supplementing with formula) Support Person: - Recovery Exam Fundal Tone: Firm Fundal Level: At Umbilicus Fundal Placement: Midline Lochia Amount: Scant Lochia Color: Rubra/Red Perineum Description: Intact, Minimal Bruising/Swelling Episiotomy/Laceration: None Bladder Status: Voiding Urinary Elimination: Voided - Exam General: Alert Lungs: Normal Respiratory Effort Cardiovascular: Regular Rate GI/Abdominal Exam: Soft, Non-Tender Extremities: Normal Range of Motion, Non-Tender, Pedal Edema (trace) Skin: Warm, Dry, Intact Wound/Incisions: Healing Well Neurological: No New Focal Deficit Psy/Mental Status: Normal Mood - Problem List Review Problem List Initiated/Reviewed/Updated: Yes - Assessment Assessment:: POD 3 status post primary LTCS Anemia - Plan Plan:: VS are stable, anemic--denies symptoms. Continue postoperative cares, ambulate today. Anticipate discharge today pending maternal/ status. Reviewed discharge instructions and follow up.
[2020-12-31] MEDS: Docusate Sodium 100 MG Cap PO SCH (09:50)
== END 2020-12-31 13:45 | disposition home or self-care (01) | DRG 540 ==
LOC: MW.OB 16:55 → MW.OBCHECK 16:55 → MW.OB 18:01 → MW.OBCHECK 18:01 → OBSVTOIN 12-28 20:19 → MW.OB 12-28 22:30
PROVIDERS: ADMIT Obstetrics & Gynecology; ATTEND Obstetrics & Gynecology
PROC: 10D00Z1 Extraction of Products of Conception, Low, Open Approach (ICD-10-PCS; principal; 2020-12-28)
PROC: 3E0R3BZ Introduction of Anesthetic Agent into Spinal Canal, Percutaneous Approach (ICD-10-PCS; 2020-12-28)
PROC: 00HU33Z Insertion of Infusion Device into Spinal Canal, Percutaneous Approach (ICD-10-PCS; 2020-12-28)
DX: O62.0 Primary inadequate contractions (principal); O48.0 Post-term pregnancy; Z3A.41 41 weeks gestation of pregnancy; Z37.0 Single live birth; O99.02 Anemia complicating childbirth; D64.9 Anemia, unspecified
CPT/HCPCS: 01967; 36415; 51702; 59025; 82803; 85014; 85018; 85027; 86592; 86850; 86900; 86901; A9270-GY; J0595; J0690; J1885; J2270; J2405; J2590; J3010; J7120